=== PATIENT | female | born 2000 | race African-American/Black ===

== ENCOUNTER 2021-11-15 10:50 | Day surgery (SDC) | payer OTHER ==
[2021-11-15 11:09] VITALS: BMI 23.1
[2021-11-15] MEDS ORDERED: hydrALAZINE 20 MG/ML VIAL SLOW IVP PRN (11:48)
[2021-11-15 12:22] LABS: Bilirubin Neg (Negative); Blood, Urine Negative (Negative); Clarity Clear (Clear); Glucose, Urine (Dipstick) Normal (Negative); Ketone, Urine 50 mg/dL (Negative); Leukocyte Negative (Negative); Nitrite Negative (Negative); Protein, Urine (Dipstick) 15 mg/dl (Neg-Trace)
[2021-11-15 12:29] LABS: Bacteria/HPF Rare-Few HPF (None Seen); RBC/HPF 0-3 HPF (0-3); Squamous Epithelial 0-3 HPF (0-3); WBC/HPF 0-3 HPF (0-3)
== END 2021-11-15 13:08 | disposition home health service (06) ==
LOC: CSHLD/OP 10:50
PROVIDERS: ATTEND Obstetrics & Gynecology
DX: O47.03 False labor before 37 completed weeks of gestation, third trimester (principal); O09.213 Supervision of pregnancy with history of pre-term labor, third trimester; Z3A.35 35 weeks gestation of pregnancy
CPT/HCPCS: 59025; 81001; 99283

== ENCOUNTER 2021-11-19 23:06 | Day surgery (SDC) | payer OTHER ==
[2021-11-19 23:39] VITALS: BMI 24.1
[2021-11-20] MEDS ORDERED: hydrALAZINE 20 MG/ML VIAL SLOW IVP PRN
[2021-11-20] MEDS ORDERED: Acetaminophen 500 MG TAB PO PRN
[2021-11-20 00:03] LABS: Fetal Membranes Rupture No Membranes Rupture (No Rupture)
== END 2021-11-20 03:50 | disposition home or self-care (01) ==
LOC: CSHLD/OP 23:06
PROVIDERS: ATTEND Obstetrics & Gynecology
DX: O98.813 Other maternal infectious and parasitic diseases complicating pregnancy, third trimester (principal); B37.3 Candidiasis of vulva and vagina; O09.213 Supervision of pregnancy with history of pre-term labor, third trimester; Z3A.35 35 weeks gestation of pregnancy
CPT/HCPCS: 84112; 87480; 87510; 87660

== ENCOUNTER 2021-12-01 09:04 | Inpatient (IN) | payer OTHER ==
[~2021-12-01 09:04] MED LIST: Bupivacaine 0.25% HCL 30 ML VIAL ONE
[2021-12-01] MEDS ORDERED: Promethazine HCl 25 MG/ML VIAL IM PRN ×2 (09:10→10:13)
[2021-12-01] MEDS ORDERED: Misoprostol 200 MCG TAB PR PRN (09:10)
[2021-12-01] MEDS ORDERED: Acetaminophen 500 MG TAB PO PRN (09:10)
[2021-12-01] MEDS ORDERED: Diphenoxylate HCl/Atropine Tablet PO PRN ×2 (09:10)
[2021-12-01] MEDS ORDERED: hydrALAZINE 20 MG/ML VIAL SLOW IVP PRN ×2 (09:10→15:27)
[2021-12-01] MEDS ORDERED: Lidocaine 1% (PF) 30 ML VIAL SC PRN (09:10)
[2021-12-01] MEDS ORDERED: Ondansetron PF 4 MG/2 ML Vial IVP PRN ×3 (09:10→15:27)
[2021-12-01] MEDS ORDERED: Docusate 100 MG CAP PO PRN (09:10)
[2021-12-01] MEDS ORDERED: Butorphanol Tartrate 1 MG/ML VIAL SLOW IVP PRN (09:10)
[2021-12-01] MEDS ORDERED: Ibuprofen 800 MG TAB PO PRN (09:10)
[2021-12-01] MEDS ORDERED: HYDROcodone/Acetaminophen 5/325 mg Tablet PO PRN ×4 (09:10→15:27)
[2021-12-01] MEDS ORDERED: NS w/ Oxytocin 30 units 500 ML IV SCH ×3 (09:15→15:30)
[2021-12-01] MEDS: Lactated Ringer's 1,000 ML IV SCH ×2 (09:48→10:52)
[2021-12-01] MEDS ORDERED: Fentanyl 2 mcg/Bup 0.1% Cadd 100 ML ONE (10:09)
[2021-12-01] MEDS ORDERED: diphenhydrAMINE 50 MG/ML VIAL IVP PRN (10:13)
[2021-12-01] MEDS ORDERED: Acetaminophen 325 MG TAB PO PRN (10:13)
[2021-12-01] MEDS ORDERED: Moisturizing Cream (Eucerin) 113 GM JAR TOP PRN (10:13)
[2021-12-01] MEDS ORDERED: Naloxone HCl 0.4 mg/ml Vial IVP PRN ×2 (10:13)
[2021-12-01] MEDS ORDERED: Lactated Ringer's 500 ML IV PRN (10:13)
[2021-12-01] MEDS ORDERED: ePHEDrine Sulfate 50 MG/10 ML VIAL SLOW IVP PRN (10:13)
[2021-12-01] MEDS ORDERED: Fentanyl 2 mcg/Bupivacaine 0.1% Cassette 100 ML EPIDURAL SCH (10:15)
[2021-12-01] MEDS ORDERED: Communication Order-Pharmacy FS SCH (10:15)
[2021-12-01 10:21] VITALS: BMI 24.1
[2021-12-01 10:26] LABS: Hemoglobin 9.4 g/dL (12.0-15.5); Mean Corpuscular HGB CONC 28.7 g/dL (32.0-36.0); Mean Corpuscular Hemoglobin 20.1 pg (27.0-33.0); Mean Platelet Volume 10.4 fl (7.4-10.4); Platelet Count 295 10x3/uL (150-450); RBC Distribution Width 17.9 % (11.5-14.5); Red Blood Cell (RBC) Count 4.67 10x6/uL (3.90-5.03); White Blood Cell (WBC) Count 7.9 10x3/uL (3.5-10.5)
[2021-12-01 10:47] LABS: HIV (1/2) Antibody/Antigen Non-Reactive (NonReactive); HIV 1/2 INDEX 0.06 S/CO (<1.00); Hep B Surf Ag Non-Reactive S/CO (NonReactive)
[2021-12-01 10:48] LABS: Syphilis Antibody Nonreactive (Nonreactive); Syphilis Antibody Index 0.05 S/CO (<1.00 Non-Reactive)
[2021-12-01 10:49] LABS: HBSAg Index 0.17 S/CO (0-0.99)
[2021-12-01 11:20] LABS: SARS-CoV-2 NAA Rapid Test Not Detected (NotDetected)
[2021-12-01] MEDS ORDERED: diphenhydrAMINE 25 MG CAP PO PRN (15:27)
[2021-12-01] MEDS ORDERED: Lanolin Ointment 7 GM TUBE TOP PRN (15:27)
[2021-12-01] MEDS ORDERED: Zolpidem Tartrate 5 MG TAB PO PRN (15:27)
[2021-12-01] MEDS ORDERED: Misoprostol 200 MCG TAB VAG PRN (15:27)
[2021-12-01] MEDS ORDERED: Preparation H Ointment 28 GM TUBE PR PRN (15:27)
[2021-12-01] MEDS ORDERED: Bisacodyl 10 MG SUPP PR PRN (15:27)
[2021-12-01] MEDS ORDERED: Milk Of Magnesia 30 ML UDCUP PO PRN (15:27)
[2021-12-01] MEDS ORDERED: Boostrix 0.5 ML (Tdap) VIAL IM ONE (15:27)
[2021-12-01] MEDS ORDERED: Benzocaine-Menthol 82.5 ML CAN TOP PRN (15:27)
[2021-12-01] MEDS: Ferrous Sulfate 325 MG TAB PO SCH (20:14)
[2021-12-01] MEDS: Docusate 100 MG CAP PO SCH (21:06)
[2021-12-01] MEDS: Ibuprofen 800 MG TAB PO SCH (21:22)
[2021-12-02] MEDS: Ibuprofen 800 MG TAB PO SCH ×2 (03:30→11:47)
[2021-12-02] MEDS ORDERED: Prenatal Vitamin 1 TAB PO SCH (09:00)
[2021-12-02] MEDS: Docusate 100 MG CAP PO SCH (09:15)
[2021-12-02] MEDS: Ferrous Sulfate 325 MG TAB PO SCH (09:15)
[2021-12-02 11:38] VITALS: BP 120/75; TEMP 98.4
== END 2021-12-02 17:05 | disposition home or self-care (01) | DRG 807 ==
LOC: CSHLD 09:04 → CSHPP 17:50
PROVIDERS: ADMIT Obstetrics & Gynecology; ATTEND Obstetrics & Gynecology
PROC: 10E0XZZ Delivery of Products of Conception, External Approach (ICD-10-PCS; principal; 2021-12-01)
PROC: 10907ZC Drainage of Amniotic Fluid, Therapeutic from Products of Conception, Via Natural or Artificial Opening (ICD-10-PCS; 2021-12-01)
DX: O99.02 Anemia complicating childbirth (principal); Z37.0 Single live birth; Z3A.37 37 weeks gestation of pregnancy; Z20.822 Contact with and (suspected) exposure to COVID-19; D64.9 Anemia, unspecified; Z79.899 Other long term (current) drug therapy
CPT/HCPCS: 36415; 51702; 85014; 85018; 85027; 86780; 86850; 86900; 86901; 87340; 87389; J2405; J2590; J7120; S0020; U0002